=== PATIENT | female | born 1995 | race Caucasian/White ===

== ENCOUNTER 2019-01-10 13:18 | Emergency (ER) | payer OTHER ==
--- NOTE | 2019-01-10 14:15 | ED ---
Upper Extremity Pain - HPI Summary HPI Summary: 23 year old female presents with left wrist injury today. States that she was restraining a prisoner and she hurting her left wrist. She has pain greatest over the ulnar aspect of wrist. She denies any wrist or elbow. She is left- handed. No numbness or tingling. - History of Current Complaint Chief Complaint: EDExtremityUpper Stated Complaint: LEFT WRIST INJURY Time Seen by Provider: 01/10/19 13:34 - Allergies/Home Medications Allergies/Adverse Reactions: Allergies Allergy/AdvReac Type Severity Reaction Status Date / Time No Known Allergies Allergy Verified 01/10/19 13:25 Home Medications: Home Medications Loratadine 10 mg PO DAILY PRN 01/10/19 [History Confirmed 01/10/19] PMH/Surg Hx/FS Hx/Imm Hx Endocrine/Hematology History: Denies: Hx Anticoagulant Therapy Respiratory History: Denies: Hx Asthma Infectious Disease History: No Infectious Disease History: Denies: Traveled Outside the [place] in Last 30 Days - Family History Known Family History: Positive: Non-Contributory - Social History Alcohol Use: Rare Substance Use Type: Reports: None Smoking Status (MU): Never Smoked Tobacco Review of Systems Negative: Fever Negative: Chest Pain Negative: Shortness Of Breath Positive: Myalgia - left wrist All Other Systems Reviewed And Are Negative: Yes Physical Exam Triage Information Reviewed: Yes Vital Signs On Initial Exam: Initial Vitals Temp Pulse Resp BP Pulse Ox 98.3 F 79 16 142/85 98 01/10/19 13:21 01/10/19 13:21 01/10/19 13:21 01/10/19 13:21 01/10/19 13:21 Vital Signs Reviewed: Yes Appearance: Positive: Well-Appearing Skin: Positive: Warm, Dry Head/Face: Positive: Normal Head/Face Inspection Eyes: Positive: Normal, Conjunctiva Clear ENT: Positive: Pharynx normal Respiratory/Lung Sounds: Positive: Clear to Auscultation, Breath Sounds Present Cardiovascular: Positive: Normal, RRR Musculoskeletal: Positive: Strength/ROM Intact - left wrist, Other - tenderness ulnar aspect of left wrist, pain greatest with flexion of wrist and radial deviation. no snuff box tenderness, nontender elbow, able to flex and extend fingers, full ROM thumb Neurological: Positive: Normal Psychiatric: Positive: Normal Procedures - Sedation Patient Received Moderate/Deep Sedation with Procedure: No Diagnostics - Vital Signs Vital Signs Temp Pulse Resp BP Pulse Ox 01/10/19 13:21 98.3 F 79 16 142/85 98 - Laboratory Lab Statement: Any lab studies that have been ordered have been reviewed, and results considered in the medical decision making process. - Radiology wrist Radiology Interpretation Completed By: Radiologist Summary of Radiographic Findings: IMPRESSION: NO FRACTURE OF THE WRIST IS NOTED. Course/Dx - Course Course Of Treatment: 23 year old female presents with left wrist injury today. States that she was restraining a prisoner and she hurting her left wrist. She has pain greatest over the ulnar aspect of wrist. She denies any wrist or elbow. She is left-handed. No numbness or tingling. On exam has full range of motion of the wrist. Tenderness over ulnar aspect of left radius. pain greatest with flexion and radial deviation. Gave splint. Will have follow-up with occupational health. Patient understands agrees plan. - Diagnoses Differential Diagnosis/HQI/PQRI: Positive: Fracture (Closed), Strain, Sprain Provider Diagnoses: Left wrist pain Discharge ED - Sign-Out/Discharge Documenting (check all that apply): Patient Departure - Discharge Plan Condition: Good Disposition: HOME Patient Education Materials: Wrist Injury (ED) Forms: *Work Release Referrals: Angel Carrillo MD [Medical Doctor] - Additional Instructions: use splint on area ice, elevate take tyenlol or ibuprofen every 6 hours as needed for pain follow up with occupational health Return to ED if develop any new or worsening symptoms - Billing Disposition and Condition Condition: GOOD Disposition: Home
[2019-01-10 15:26] VITALS: BP 146/78
== END 2019-01-10 15:26 | disposition home or self-care (01) ==
LOC: ED 13:18
DX: M25.532 Pain in left wrist (principal); X50.9XXA Other and unspecified overexertion or strenuous movements or postures, initial encounter; Y92.149 Unspecified place in prison as the place of occurrence of the external cause; Y99.0 Civilian activity done for income or pay
CPT/HCPCS: 99282